=== PATIENT | female | born 1975 | race African-American/Black ===

== ENCOUNTER 2021-08-29 16:34 | Emergency (ER) | payer SELFPAY ==
[~2021-08-29] VITALS: Ht 165.1 cm; Wt 90.0 kg
--- NOTE | 2021-08-29 16:50 | PHYS DOC ---
General Adult EDM: Chief Complaint: URINARY FREQUENCY HPI: HPI: Patient is a 46 year old female who presents with 3 days of urinary frequency and some pain to her low mid abdomen after urinating only. She states states she is starting to have low back ache also. She denies fever, nausea, vomiting, diarrhea, excessive thirst, chest pain, shortness of air, blood in her urine, constipation, headache, dizziness. She has a history of diabetes. Denies any pain at this time. [] (SAL DUMONT AUTO WINDER) Review of Systems: Review of Systems: Constitutional: Denies fever or chills. [] Eyes: Denies change in visual acuity. [] HENT: Denies nasal congestion or sore throat. [] Respiratory: Denies cough or shortness of breath. [] Cardiovascular: Denies chest pain or edema. [] GI: +Low mid abdominal pain, denies nausea, vomiting, bloody stools or diarrhea. [] : + dysuria. [] Musculoskeletal: Denies back pain or joint pain. [] Integument: Denies rash. [] Neurologic: Denies headache, focal weakness or sensory changes. [] Endocrine: Denies polyuria or polydipsia. [] Lymphatic: Denies swollen glands. [] Psychiatric: Denies depression or anxiety. [] (SAL DUMONT AUTO WINDER) Heart Score: C/O Chest Pain: No ([facility] APRN) Physical Exam: PE: Constitutional: Well developed, well nourished, no acute distress, non-toxic appearance. [] HENT: Normocephalic, atraumatic, bilateral external ears normal, oropharynx moist, no oral exudates, nose normal. [] Eyes: PERRLA, EOMI, conjunctiva normal, no discharge. [] Neck: Normal range of motion, no tenderness, supple, no stridor. [] Cardiovascular:Heart rate regular rhythm, no murmur [] Lungs & Thorax: Bilateral breath sounds clear to auscultation [] Abdomen: Bowel sounds normal, soft, no tenderness, no masses, no pulsatile masses. [] Skin: Warm, dry, no erythema, no rash. [] Back: No tenderness, no CVA tenderness. [] Extremities: No tenderness, no cyanosis, no clubbing, ROM intact, no edema. [] Neurologic: Alert and oriented X 3, normal motor function, normal sensory function, no focal deficits noted. [] Psychologic: Affect normal, judgement normal, mood normal. [] Normal physical exam (SAL DUMONT APRN) EKG: EKG: [] (SAL DUMONT APRN) Radiology/Procedures: Radiology/Procedures: [] (SAL DUMONT APRN) Course & Med Decision Making: Course & Med Decision Making Pertinent Labs and Imaging studies reviewed. (See chart for details) See HPI. Alert and oriented x4. Ambulatory steady gait. Skin pink warm and dry. Mucous membranes moist. No CVA tenderness. Abdomen is soft and nontender. Afebrile. Patient states she is taking all of her medications as prescribed. Urinalysis shows infection. She is to follow-up with her primary care provider. (SAL DUMONT APRN) Dragon Disclaimer: Dragon Disclaimer: This electronic medical record was generated, in whole or in part, using a voice recognition dictation system. (SAL DUMONT APRN) Departure Departure Impression: Primary Impression: UTI (urinary tract infection) Qualified Codes: N39.0 - Urinary tract infection, site not specified; R31.9 - Hematuria, unspecified Disposition: 01 HOME / SELF CARE / HOMELESS Condition: STABLE Referrals: UNKNOWN PCP NAME (PCP) Patient Instructions: Urinary Tract Infection Additional Instructions: Follow-up with your primary care provider when you get home. Drink plenty of fluids to stay hydrated and to flush your kidneys. If any symptoms worsen he can return to the emergency room. Take medication as prescribed and with food until it is gone. Scripts Cefdinir (CEFDINIR) 300 Mg Capsule 1 CAP PO BID, #14 CAP Prov: SAL DUMONT APRN 08/29/21 Attending Signature I have participated in the care of this patient and I have reviewed and agree with all pertinent clinical information above including history, exam, and recommendations. (BIANCA GONZALEZ DO) SAL DUMONT APRN Aug 29, 2021 16:50 BIANCA GONZALEZ DO Aug 29, 2021 17:43
[2021-08-29 17:36] LABS: BACTERIA,URINE 0 /HPF (0-FEW); WBC,URINE TNTC /HPF (0-4)
[2021-08-29] MEDS ORDERED: CEFD300C PO ×2 (17:39→17:56)
[2021-08-29 17:48] VITALS: BP 161/91
== END 2021-08-29 17:59 | disposition home or self-care (01) ==
LOC: ER 16:34
DX: N39.0 Urinary tract infection, site not specified (principal)
CPT/HCPCS: 81001; 81025; 82962; 87077; 87086; 99283